=== PATIENT | female | born 1960 | race African-American/Black ===

== ENCOUNTER → 2020-06-22 13:03 | Outpatient (BNVA) | payer OTHER, SELFPAY | PROVIDERS: PCP Internal Medicine Sports Medicine; Referring Provider Internal Medicine Sports Medicine; Visit Provider Surgery | DX: Z76.89 Persons encountering health services in other specified circumstances (principal) ==

== ENCOUNTER 2020-07-06 10:26 | Outpatient (REF) | payer OTHER, SELFPAY ==
--- NOTE | 2020-07-06 10:34 | XR_ITS ---
EXAMINATION: XR CHEST CLINICAL INFORMATION: Sleep apnea COMPARISON: None TECHNIQUE: 2 views of the chest were obtained. FINDINGS: No significant abnormality is noted involving the heart, lungs, mediastinum, bony thorax or soft tissues. XR/XR chest 2V IMPRESSION: Unremarkable examination.
--- NOTE | 2020-07-06 10:34 | FL_ITS ---
EXAMINATION: XR GI SERIES CLINICAL INFORMATION: Sleep apnea. COMPARISON: None. TECHNIQUE: Air contrast upper GI examination. FINDINGS: Patient swallowed thin and thick barium and CO2 crystals without difficulty. There is no evidence of nasopharyngeal reflux or tracheal aspiration. There is normal esophageal motility without mucosal abnormality. No gastroesophageal reflux was elicited during the test including with water siphon test. The stomach demonstrates normal distensibility without evidence of abnormal mass or ulceration. There was no delay in gastric emptying. The duodenal bulb and sweep appear unremarkable. FLUOROSCOPY TIME: 1.6 minute. DOSE AREA PRODUCT: 18.640 Gy-cm2. FL/FL upper GI series IMPRESSION: Normal air contrast upper GI examination.
--- NOTE | 2020-07-06 10:40 | US_ITS ---
EXAMINATION: US COMPLETE ABDOMEN WITH LIVER ELASTOGRAPHY CLINICAL INFORMATION: Bariatric service evaluation. Sleep apnea. COMPARISON: None. TECHNIQUE: Real-time imaging of the abdominal viscera. Noninvasive ultrasound liver fibrosis assessment is performed using Charlie ElastPQ point quantification shear wave elastography (pSWE) with a 5 MHz transducer. Multiple elastography samples are obtained. FINDINGS: PANCREAS: The visualized pancreas is normal in size and contour and echogenicity. There is no pancreatic ductal distention. Portion pancreatic tail is obscured by bowel gas and not completely imaged. ABDOMINAL AORTA: The proximal, middle, and distal aortic segments are normal in caliber. INFERIOR VENA CAVA: Visualized portions are normal. LIVER: The liver is normal in size and smooth in contour. Hepatic parenchymal echogenicity is borderline increased which may suggest mild hepatic steatosis. The right lobe measures 15.4 cm in length. The left lobe measures 12.0 cm in length. Real-time Doppler shows portal flow towards the liver. Shear wave elastography provides a median stiffness of 1.32 m/s (reference: normal median stiffness is 0.81 - 1.22 m/s). The IQR/median stiffness to assess sampling precision is 0.25 (reference: optimal IQR/median stiffness is under 0.3). GALLBLADDER: Normal. The gallbladder is physiologically distended without evidence of stones, sludge, polyps, wall thickening or pericholecystic fluid. COMMON BILE DUCT: Normal in caliber measuring 0.3 cm in diameter. RIGHT KIDNEY: Normal. No hydronephrosis. No renal calculi or focal parenchymal lesions. The kidney measures 10.9 cm in maximum dimension. LEFT KIDNEY: Normal. No hydronephrosis. No renal calculi or focal parenchymal lesions. The kidney measures 9.4 cm in maximum dimension. SPLEEN: Normal. The spleen measures 8.4 cm in maximum dimension. FREE FLUID: None. US/US abdomen comp w elastography IMPRESSION: 1. Mild hepatic steatosis. 2. Elastography: Liver elastography measurements are consistent with a minimal risk for clinically significant liver fibrosis (METAVIR Stage F0-F1). 3. No cholelithiasis or ductal dilatation.
== END 2020-07-06 10:27 | disposition home or self-care (01) ==
LOC: HO.US 10:26
PROVIDERS: PCP Internal Medicine Sports Medicine; Visit Provider Surgery
DX: Z01.818 Encounter for other preprocedural examination (principal); E66.9 Obesity, unspecified; K21.9 Gastro-esophageal reflux disease without esophagitis; G47.30 Sleep apnea, unspecified
CPT/HCPCS: 71046; 74240; 76700; 76705; 76981

== ENCOUNTER → 2020-07-07 08:36 | Outpatient (BNVA) | payer OTHER, SELFPAY | PROVIDERS: PCP Internal Medicine Sports Medicine; Referring Provider Internal Medicine Sports Medicine; Visit Provider Dietitian, Registered | DX: Z76.89 Persons encountering health services in other specified circumstances (principal) ==

== ENCOUNTER → 2020-07-14 08:00 | Outpatient (BNVA) | payer OTHER, SELFPAY | PROVIDERS: PCP Internal Medicine Sports Medicine; Visit Provider Surgery | DX: Z76.89 Persons encountering health services in other specified circumstances (principal) ==

== ENCOUNTER → 2020-08-10 09:23 | Outpatient (BNVA) | payer OTHER, SELFPAY | PROVIDERS: PCP Internal Medicine Sports Medicine; Referring Provider Internal Medicine Sports Medicine; Visit Provider Dietitian, Registered | DX: Z76.89 Persons encountering health services in other specified circumstances (principal) ==

== ENCOUNTER → 2020-08-11 07:48 | Outpatient (BNVA) | payer OTHER, SELFPAY | PROVIDERS: Visit Provider Surgery | DX: Z76.89 Persons encountering health services in other specified circumstances (principal) ==

== ENCOUNTER 2020-08-15 15:35 | Outpatient (REF) | payer OTHER, SELFPAY ==
[2020-08-16 13:53] LABS: H Pylori Breath Test DETECTED (NOT DETECTED)
== END 2020-08-15 15:36 | disposition home or self-care (01) ==
LOC: HO.LNP 15:35
PROVIDERS: PCP Internal Medicine Sports Medicine; Visit Provider Physician Assistant
DX: Z11.0 Encounter for screening for intestinal infectious diseases (principal)
CPT/HCPCS: 83013

== ENCOUNTER → 2020-08-17 08:13 | Outpatient (BNVA) | payer OTHER, SELFPAY | PROVIDERS: PCP Internal Medicine Sports Medicine; Visit Provider Dietitian, Registered | DX: Z76.89 Persons encountering health services in other specified circumstances (principal) ==

== ENCOUNTER → 2020-08-24 08:20 | Outpatient (BNVA) | payer OTHER, SELFPAY | PROVIDERS: PCP Internal Medicine Sports Medicine; Visit Provider Dietitian, Registered | DX: Z76.89 Persons encountering health services in other specified circumstances (principal) ==

== ENCOUNTER → 2022-05-02 12:58 | Outpatient (BNVA) | payer OTHER, SELFPAY | PROVIDERS: PCP Internal Medicine; Visit Provider Dietitian, Registered | DX: E66.01 Morbid (severe) obesity due to excess calories (principal); Z68.41 Body mass index [BMI] 40.0-44.9, adult | CPT/HCPCS: 97802 ==